=== PATIENT | male | born 1980 | race American Indian/Alaskan Native ===

== ENCOUNTER 2021-02-25 18:50 | Emergency (ER) | payer SELFPAY ==
[2021-02-25 19:02] VITALS: BP 129/76
[2021-02-25] MEDS ORDERED: FLUORESCEIN 1 MG STRIP OP ONE (20:21)
[2021-02-25] MEDS ORDERED: TETRACAINE 0.5% OPHTH SOLN 4ML OU PRN (20:21)
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
--- NOTE | 2021-02-25 21:21 | Cat Scan Report ---
CT head/brain wo con INDICATION: pain after fall with head injury. TECHNIQUE: Routine CT head without contrast. All CT scans at this location are performed using CT dose reduction for ALARA by means of automated exposure control. COMPARISON: None. FINDINGS: BRAIN / INTRACRANIAL CONTENTS: No acute hemorrhage, brain edema, mass effect, or hydrocephalus. Roshni l gant-white differentiation. No chronic infarct or focal atrophy. Normal brain volume and ventricula r/sulcal size for age. CALVARIUM/SKULL BASE/CRANIOCERVICAL JUNCTION: No evidence of fracture. ORBITS: No significant abnormality of visualized orbits. SINUSES / MASTOIDS: No significant abnormality of visualized sinuses and mastoid air cells. ADDITIONAL FINDINGS: None. IMPRESSION: 1. No acute post-traumatic intracranial abnormality. Signer Name: Nestor Dale MD Signed: 02/25/2021 9:16 PM Workstation Name: [id number]
--- NOTE | 2021-02-25 21:22 | Cat Scan Report ---
CT MAXILLOFACIAL WITHOUT CONTRAST INDICATION: right facial pain near eye after fall injury. TECHNIQUE: All CT scans at this location are performed using CT dose reduction for ALARA by means of automated e xposure control. COMPARISON: None available. FINDINGS: FACIAL BONES: There are nondisplaced age-indeterminate bilateral nasal fractures. PARANASAL SINUSES: Trace mucosal thickening in the maxillary sinuses. ORBITS: No significant abnormality. VISUALIZED INTRACRANIAL STRUCTURES: No significant abnormality. ADDITIONAL FINDINGS: None. IMPRESSION: 1. Nondisplaced age-indeterminate bilateral nasal fractures. 2. No additional significant abnormality. Signer Name: Nestor Dale MD Signed: 02/25/2021 9:18 PM Workstation Name: [id number]
--- NOTE | 2021-02-25 21:24 | Cat Scan Report ---
CT CERVICAL SPINE WITHOUT CONTRAST INDICATION: pain after fall with head injury. TECHNIQUE: Axial CT images of the spine were obtained. Sagittal and coronal reformatted images were produced. Al l CT scans at this location are performed using CT dose reduction for ALARA by means of automated exp osure control. COMPARISON: None available. FINDINGS: ACUTE FRACTURE(S) OR SUBLUXATION: None. SPINAL DEGENERATIVE CHANGES: No significant degenerative changes. PARASPINAL SOFT TISSUES: No soft tissue swelling or other acute abnormalities. ADDITIONAL FINDINGS: No significant additional findings. IMPRESSION: 1. No acute fracture or subluxation in the spine in neutral position. Signer Name: Nestor Dale MD Signed: 02/25/2021 9:19 PM Workstation Name: [id number]
--- NOTE | 2021-02-25 21:42 | XRay Report ---
XR knee 3V LT INDICATION / CLINICAL INFORMATION: pain after fall injury. COMPARISON: None available. FINDINGS: BONES/JOINT(S): No acute fracture or subluxation. Minimal DJD in the patellofemoral compartment. SOFT TISSUES: No significant abnormality. ADDITIONAL FINDINGS: None. Signer Name: Nestor Dale MD Signed: 02/25/2021 9:38 PM Workstation Name: [id number]
[2021-02-25] MEDS ORDERED: NEOMY 3.5 MG/BACIT 400 UNITS/POLY B 5000 UNITS/GM OINT PACKET TP STA (22:34)
[2021-02-25] MEDS ORDERED: ACETAMINOPHEN 500 MG TAB PO STA (22:35)
[2021-02-25] MEDS ORDERED: IBUPROFEN 800 MG TAB PO ONE (22:35)
== END 2021-02-25 23:30 | disposition home or self-care (01) ==
LOC: ED 18:50
DX: S09.90XA Unspecified injury of head, initial encounter (principal); S89.92XA Unspecified injury of left lower leg, initial encounter; M54.2 Cervicalgia; F17.200 Nicotine dependence, unspecified, uncomplicated; F12.90 Cannabis use, unspecified, uncomplicated; Z98.890 Other specified postprocedural states; Z79.899 Other long term (current) drug therapy; W17.89XA Other fall from one level to another, initial encounter; Y93.89 Activity, other specified; Y92.89 Other specified places as the place of occurrence of the external cause; Y99.8 Other external cause status
CPT/HCPCS: 70450; 70486; 72125; 73562; 99284; A6250